=== PATIENT | male | born 1940 | race Caucasian/White ===

== ENCOUNTER 2018-12-01 13:04 | Emergency (ER) | payer MEDICARE, BC ==
[2018-12-01] MEDS ORDERED: Sodium Chloride 0.9% 1000 ML 1,000 ML IV STA ×2 (13:15→13:33)
--- NOTE | 2018-12-01 13:24 | ERPHSYRPT ---
- History of Present Illness Time Seen by Provider: 12/01/18 13:45 Source: patient, EMS Exam Limitations: no limitations Physician History: 78-year-old white male brought by medics with complaint of near syncopal episode at [facility] just prior to arrival. Patient states that he was walking at [facility] he suddenly began to feel weak dizzy diaphoretic felt like he had to use the bathroom , unfortunately some was in the stall he then,apparently , slid down the wall patient apparently had y diarrhea medics arrived. the patient appeared to have the same type of symptoms he never really didn't pass out he did not fall and hit his head he arrives talking and joking with staff. Past medical history includes cataracts, high blood pressure, arthritis, prostate problems, hernia.depression, hypotension. Past surgical history includes hernia repair, tonsillectomy, cataracts. . social history: Positive tobacco use, +6 beers a day, negative illicit drug use. Timing/Duration: today Severity: moderate Associated Symptoms: other (near syncopal episode, diarrhea) Allergies/Adverse Reactions: Penicillins Allergy (Intermediate, Verified 11/05/18 13:23) Itching swelling and itching Home Medications: Aspirin 81 mg PO DAILY 11/05/18 [History] Glucosamine/D3/Boswellia Nahed [Osteo Bi-Flex Tablet] 2 each PO DAILY 11/05/18 [ History] Losartan/Hydrochlorothiazide [Losartan-Hctz 50-12.5 mg Tab] 20 mg PO DAILY 11/05 [History] Naproxen Sodium [Aleve] 220 mg PO DAILY 11/05/18 [History] Hx Tetanus, Diphtheria Vaccination/Date Given: Yes Hx Influenza Vaccination/Date Given: No Hx Pneumococcal Vaccination/Date Given: No - Review of Systems Constitutional: Malaise, Weakness, Other (diaphoresis prior to nearsyncopal episode), No Fever, No Chills, No Fatigue, No Lethargy, No Night Sweats, No Weight Loss Eyes: No Symptoms Ears, Nose, & Throat: No Symptoms Respiratory: No Cough, No Dyspnea Cardiac: Other (near syncopal episode), No Chest Pain, No Edema, No Syncope Abdominal/Gastrointestinal: Nausea, Diarrhea, No Abdominal Pain, No Vomiting, No Constipation, No Hematemesis, No Hematochezia, No Melena, No Dysphagia, No Appetite Changes Genitourinary Symptoms: No Dysuria Musculoskeletal: No Back Pain, No Neck Pain Skin: No Rash Neurological: Other (near syncopal episode), No Dizziness, No Focal Weakness, No Sensory Changes Psychological: Other (drinks 6 beers a day), No Drug Abuse, No Anxiety, No Depression, No Suicidal Ideations, No Homicidal Ideations, No Emotional Lability , No Hallucinations, No Memory Loss Endocrine: No Symptoms - Past Medical History Pertinent Past Medical History: Yes Neurological History: No Pertinent History ENT History: Cataracts Cardiac History: Hypertension Respiratory History: No Pertinent History Endocrine Medical History: No Pertinent History Musculoskeletal History: Arthritis GI Medical History: Hernia History: No Pertinent History Psycho-Social History: No Pertinent History Male Reproductive Disorders: Prostate Problems - Past Surgical History Past Surgical History: Yes Neuro Surgical History: No Pertinent History Cardiac: No Pertinent History Respiratory: No Pertinent History Gastrointestinal: Hernia Repair Genitourinary: No Pertinent History Musculoskeletal: No Pertinent History Male Surgical History: No Pertinent History Other Surgical History: tonsillectomy,CATARACTS - Social History Smoking Status: Current every day smoker How long have you smoked: 60yrs Exposure to second hand smoke: Yes Drug Use: none Patient Lives Alone: Yes - Nursing Vital Signs Nursing Vital Signs: Initial Vital Signs Temperature 98.1 F 12/01/18 13:24 Pulse Rate 88 12/01/18 13:24 Respiratory Rate 16 12/01/18 13:24 Blood Pressure 90/62 12/01/18 13:24 O2 Sat by Pulse Oximetry 92 L 12/01/18 13:24 Pain Scale Pain Intensity 0 - Physical Exam General Appearance: no apparent distress, alert Eye Exam: PERRL/EOMI, eyes nml inspection Ears, Nose, Throat Exam: normal ENT inspection, TMs normal, pharynx normal, moist mucous membranes Neck Exam: normal inspection, non-tender, supple, full range of motion Respiratory Exam: normal breath sounds, lungs clear, No respiratory distress Cardiovascular Exam: regular rate/rhythm, normal heart sounds, normal peripheral pulses, capillary refill <2 sec Gastrointestinal/Abdomen Exam: soft, normal bowel sounds, No tenderness, No mass Back Exam: normal inspection, normal range of motion, No CVA tenderness, No vertebral tenderness Extremity Exam: normal inspection, normal range of motion, pelvis stable Neurologic Exam: alert, oriented x 3, cooperative, border guard II-XII nml as tested, normal mood/affect, nml cerebellar function, nml station & gait, sensation nml, No motor deficits, No sensory deficit, No disoriented, No confusion, No agitation, No uncooperative, No intoxicated appearance, No depressed mood/affect , No motor weakness, No facial droop, No slurred speech, No aphasia, No dysarthria, No abnormal gait, No abnormal cerebellar tests, No abnormal border guard II- XII (92%) Skin Exam: normal color (with the [place] for), warm, dry, No rash SpO2 Interpretation: normal - Course Nursing assessment & vital signs reviewed: Yes EKG Interpreted by Me: RATE (80 bpm), Left [place] Deviation, Other (EKG: Sinus rhythm, 80 bpm, left axis deviation, incomplete right bundle, left anterior fascicul, T-wave inversion in a AND LEADS V2 as compared to January 30, 2015) - Radiology Exams Chest X-ray Interpretation: Interpreted by me (chest x-ray no definite infiltrates somewhat hazy interstitial pattern bilateral lungs no definite CHF) Ordered Tests: Active Orders 24 hr Category Date Time Status Embossing Toolsetter STAT Care 12/01/18 14:12 Active EKG-ER Only STAT Care 12/01/18 13:15 Active IV Insertion STAT Care 12/01/18 13:15 Active Orthostatic Vital Signs STAT Care 12/01/18 13:16 Active Pulse Oximetry (ED) STAT Care 12/01/18 14:12 Active CHEST 1 VIEW (PORTABLE) Stat Exams 12/01/18 14:08 Taken AMYLASE Stat Lab 12/01/18 13:32 Completed CBC W DIFF Stat Lab 12/01/18 13:32 Completed CMP Stat Lab 12/01/18 13:32 Completed LIPASE Stat Lab 12/01/18 13:32 Completed PROTIME WITH INR Stat Lab 12/01/18 12:50 Completed PTT Stat Lab 12/01/18 12:50 Completed TROPONIN Q3H Lab 12/01/18 13:32 Completed TROPONIN Q3H Lab 12/01/18 16:15 Ordered TROPONIN Q3H Lab 12/01/18 19:15 Ordered TROPONIN Q3H Lab 12/01/18 22:15 Ordered TROPONIN Q3H Lab 12/02/18 01:15 Ordered UA W/RFX UR CULTURE Stat Lab 12/01/18 13:15 Uncollected Medication Summary Discontinued Medications Generic Name Dose Route Start Last Admin Trade Name Dani PRN Reason Stop Dose Admin Aspirin 324 mg 12/01/18 14:12 12/01/18 14:14 Baby Aspirin 81 Mg Chew PO 12/01/18 14:13 324 mg STAT ONE Administration Aspirin Confirm 12/01/18 14:13 Baby Aspirin 81 Mg Chew Administered 12/01/18 14:14 Dose 324 mg .ROUTE .STK-MED ONE Sodium Chloride 1,000 mls @ 999 mls/hr 12/01/18 13:15 12/01/18 14:16 Sodium Chloride 0.9% 1000 Ml IV 12/01/18 14:15 Infused .Q1H1M STA Infusion Sodium Chloride 1,000 mls @ 999 mls/hr 12/01/18 13:33 12/01/18 14:15 Sodium Chloride 0.9% 1000 Ml IV 12/01/18 14:33 Infused .Q1H1M STA Infusion Sodium Chloride Confirm 12/01/18 13:34 Sodium Chloride 0.9% 1000 Ml Administered 12/01/18 13:35 Dose 1,000 mls @ ud .ROUTE .STK-MED ONE Sodium Chloride Confirm 12/01/18 13:47 Sodium Chloride 0.9% 1000 Ml Administered 12/01/18 13:48 Dose 1,000 mls @ ud .ROUTE .STK-MED ONE Thiamine HCl 100 mg 12/01/18 13:44 12/01/18 13:48 Thiamine 200 Mg/2 Ml IV 12/01/18 13:45 100 mg STAT ONE Administration Thiamine HCl Confirm 12/01/18 13:47 Thiamine 200 Mg/2 Ml Administered 12/01/18 13:48 Dose 200 mg .ROUTE .STK-MED ONE Lab/Rad Data: Laboratory Result Diagrams 12/01/18 13:32 12/01/18 13:32 Laboratory Results 12/01/18 12/01/18 12/01/18 Range/Units 13:32 13:32 13:32 WBC 8.3 (4.0-10.5) K/mm3 RBC 5.44 (4.1-5.6) M/mm3 Hgb 17.3 (12.5-18.0) gm/dl Hct 49.4 (42-50) % MCV 90.8 (78-100) fl MCH 31.8 (26-32) pg MCHC 35.0 (32-36) g/dl RDW 13.2 (11.5-14.0) % Plt Count 254 (150-450) K/mm3 MPV 9.5 (6-9.5) fl Gran % 66.3 H (36.0-66.0) % Eos # (Auto) 0.18 (0-0.5) Absolute Lymphs (auto) 1.34 (1.0-4.6) Absolute Monos (auto) 1.21 (0.0-1.3) Lymphocytes % 16.2 L (24.0-44.0) % Monocytes % 14.6 H (0.0-12.0) % Eosinophils % 2.2 (0.00-5.0) % Basophils % 0.7 (0.0-0.4) % Absolute Granulocytes 5.50 (1.4-6.9) Basophils # 0.06 (0-0.4) PT (8.83-12.87) SECONDS INR (0.8-3.0) APTT (24.1-36.1) SECONDS Sodium 133 L (137-145) mmol/L Potassium 3.2 L (3.5-5.1) mmol/L Chloride 92 L (98-107) mmol/L Carbon Dioxide 24 (22-30) mmol/L Anion Gap 19.6 H (5-15) MEQ/L BUN 20 (9-20) mg/dL Creatinine 2.50 H (0.66-1.25) mg/dL Estimated GFR 26.8 ML/MIN Glucose 132 H (74-106) mg/dL Calcium 11.7 H (8.4-10.2) mg/dL Total Bilirubin 0.70 (0.2-1.3) mg/dL AST 49 (17-59) U/L ALT 31 (0-50) U/L Alkaline Phosphatase 105 (38-126) U/L Troponin I 0.074 H* (0.000-0.034) ng/mL Serum Total Protein 7.5 (6.3-8.2) g/dL Albumin 4.1 (3.5-5.0) g/dL Amylase 88 (30-110) U/L Lipase 40 (23-300) U/L 12/01/18 Range/Units 12:50 WBC (4.0-10.5) K/mm3 RBC (4.1-5.6) M/mm3 Hgb (12.5-18.0) gm/dl Hct (42-50) % MCV (78-100) fl MCH (26-32) pg MCHC (32-36) g/dl RDW (11.5-14.0) % Plt Count (150-450) K/mm3 MPV (6-9.5) fl Gran % (36.0-66.0) % Eos # (Auto) (0-0.5) Absolute Lymphs (auto) (1.0-4.6) Absolute Monos (auto) (0.0-1.3) Lymphocytes % (24.0-44.0) % Monocytes % (0.0-12.0) % Eosinophils % (0.00-5.0) % Basophils % (0.0-0.4) % Absolute Granulocytes (1.4-6.9) Basophils # (0-0.4) PT 11.9 (8.83-12.87) SECONDS INR 1.02 (0.8-3.0) APTT 26.7 (24.1-36.1) SECONDS Sodium (137-145) mmol/L Potassium (3.5-5.1) mmol/L Chloride (98-107) mmol/L Carbon Dioxide (22-30) mmol/L Anion Gap (5-15) MEQ/L BUN (9-20) mg/dL Creatinine (0.66-1.25) mg/dL Estimated GFR ML/MIN Glucose (74-106) mg/dL Calcium (8.4-10.2) mg/dL Total Bilirubin (0.2-1.3) mg/dL AST (17-59) U/L ALT (0-50) U/L Alkaline Phosphatase (38-126) U/L Troponin I (0.000-0.034) ng/mL Serum Total Protein (6.3-8.2) g/dL Albumin (3.5-5.0) g/dL Amylase (30-110) U/L Lipase (23-300) U/L - Progress Progress: improved Progress Note: 12/01/18 14:20 This is a 78-year-old white male with history of cataracts, high blood pressure , arthritis, depression, hypotension who drinks 6 beers a day. He apparently was at the local [facility] when he suddenly began to feel diaphoretic sweaty he went to the bathroom he felt like he needed use of restroom however the stall was full he apparently slid down the side of the wall and the had a near syncopal episode patient had diarrhea there. Medics state that when they showed up the patient appeared to have a second near syncopal episode he never really did pass out. On arrival patient was alert and oriented 3 he was talkative he was somewhat hypotensive. Patient was given IV fluids he is feeling better at this time. Patient with an EKG which shows sinus rhythm 80 bpm left axis deviation there are T wave inversions in leads aVL and V2 as compared to January 30, 2015 Patient's labs CBC white blood cell 8.3 hemoglobin 17.3 hematocrit 49.4 platelets 257 patient's chemistry sodium 133 potassium 3.2 chloride 92 bicarbonate 24 BUN 20 creatinine 2.5 glucose 132 Patient's troponin is elevated at 0.079 Patient is feeling better at 2 L of normal saline have been ordered for the patient as well as thiamine 100 mg IV. I've talked with the patient I recommended that the patient consider transfer to a facility that has a in-house cardiology available. He is reluctant to do so at this time. 12/01/18 14:48 Patient refuses transfer to any of the local hospitals which have available senior functional analyst. I've discussed the case with Dr. Campos he feels that the patient needs to be transferred to a facility which has senior functional analyst available and that if the patient will not do so he will need to sign out AGAINST MEDICAL ADVICE. Patient does appear to be markedly improved he is in no distress his blood pressure is improved. I've told the patient that he needs to go to a facility where her senior functional analyst is available he refuses and he states he will sign out AGAINST MEDICAL ADVICE. I have told the patient that should he have a cardiac event that he could . He is already had several episodes where he was feeling weak he has had a near syncopal episode including fecal incontinence. He still refuses transfer. Will have patient sign out AGAINST MEDICAL ADVICE. - Departure Time of Disposition: 14:50 Departure Disposition: AMA Clinical Impression: near syncopal episode, Elevated troponin Hypotension Qualifiers: Hypotension type: unspecified hypotension type Qualified Code(s): I95.9 - Hypotension, unspecified Condition: Fair Critical Care Time: No Referrals: JAMEE MERRILL [COURTESY STAFF] - Additional Instructions: Your signing out AGAINST MEDICAL ADVICE. There has been a recommended that he be transferred to a facility that has a senior functional analyst available in house you have refused. Should you have a cardiac event at home but it's possible that this could be lethal. You should follow-up with a senior functional analyst or your local physician. You may return at any time for evaluation.
[2018-12-01] MEDS ORDERED: Sodium Chloride 0.9% 1000 ML 1,000 ML ONE ×2 (13:34→13:47)
[2018-12-01] MEDS ORDERED: THIAMINE 200 MG/2 ML IV ONE (13:44)
[2018-12-01 13:45] LABS: ALBUMIN 4.1 g/dL (3.5-5.0); ANION GAP 19.6 MEQ/L (5-15); BILIRUBIN,TOTAL 0.7 mg/dL (0.2-1.3); Calcium 11.7 mg/dL (8.4-10.2); Creatinine 1 2.5 mg/dL (0.66-1.25); Potassium 3.2 mmol/L (3.5-5.1); Total Protein 7.5 g/dL (6.3-8.2)
[2018-12-01] MEDS ORDERED: THIAMINE 200 MG/2 ML ONE (13:47)
[2018-12-01 13:49] LABS: BASOPHIL % 0.7 % (0.0-0.4); Basophil (Absolute #) 0.06 (0-0.4); Eosinophil % 2.2 % (0.00-5.0); Eosinophil (Absolute #) 0.18 (0-0.5); Granulocytes % 66.3 % (36.0-66.0); Hematocrit 49.4 % (42-50); Hemoglobin 17.3 gm/dl (12.5-18.0); Lymphocyte (Absolute #) 1.34 (1.0-4.6); Lymphocytes % 16.2 % (24.0-44.0); Mean Cell Volume 90.8 fl (78-100); Mean Corpuscular Hemoglobin 31.8 pg (26-32); Mean Platelet Volume 9.5 fl (6-9.5); Monocyte (Absolute #) 1.21 (0.0-1.3); Monocytes % 14.6 % (0.0-12.0); Platelet Count 254 K/mm3 (150-450); Red Blood Count 5.44 M/mm3 (4.1-5.6); Red Cell Distribution Width 13.2 % (11.5-14.0); White Blood Count 8.3 K/mm3 (4.0-10.5)
[2018-12-01] MEDS ORDERED: BABY ASPIRIN 81 MG CHEW PO ONE (14:12)
[2018-12-01] MEDS ORDERED: BABY ASPIRIN 81 MG CHEW ONE (14:13)
[2018-12-01 14:44] LABS: INR 1.02 (0.8-3.0); PROTIME 11.9 SECONDS (8.83-12.87)
[2018-12-01 14:46] LABS: PTT 26.7 SECONDS (24.1-36.1)
[2018-12-01 14:53] VITALS: BP 125/88; PULSE 78; O2SAT 90
--- NOTE | 2018-12-01 21:56 | XRAY ---
Indication: Diaphoresis. Near syncope. Comparison: January 30, 2015. Portable apical lordotic chest slightly rotated with chronic interstitial lung markings. No focal infiltrate, consolidation, or large effusion. Heart is not enlarged for AP portable technique. Bony thorax intact again with mild osteopenia and degenerative changes. Impression: Nonacute chest with chronic features.
== END 2018-12-01 16:02 | disposition home or self-care (01) ==
LOC: ED 13:04
DX: R55 Syncope and collapse (principal); R74.8 Abnormal levels of other serum enzymes; I95.9 Hypotension, unspecified; Z79.899 Other long term (current) drug therapy
CPT/HCPCS: 36000; 36415; 71045; 80053; 82150; 83690; 84484; 85025; 85610; 85730; 93005; 93041; 96360; 96361; 96374; 96375; 99285; A9270-GY

== ENCOUNTER 2019-06-14 02:47 | Inpatient (IN) | payer MEDICARE, BC ==
[2019-06-14] MEDS ORDERED: MORPHINE SULFATE 2 MG INJ IV ONE (03:20)
--- NOTE | 2019-06-14 03:20 | ERPHSYRPT ---
- History of Present Illness Time Seen by Provider: 06/14/19 03:15 Source: patient, family Exam Limitations: no limitations Patient Subjective Stated Complaint: pt states he has a hernia on rt side and has been unable to redufe it at home. has had increased swelling and pain since 2199 Triage Nursing Assessment: pt alert and oriented, answers questions approp. pt ambulates in back door with steady gait noted. respirations nonlabored. skin pink warm and dry. abd soft with bowel sounds hypo x4. swelling noted to rt groin with tenderness . Physician History: 79 y/o white male presents with a recurrent right inguinal hernia. has occurred often in the last several months. when it comes out, usually golf ball size and able to ly down and reduce. at 2229, came out differently. he attempted to reduce but could not. enlarged and tender. active but does not do excessive lifting. Timing/Duration: today Activites at Onset: none Quality: cramping Onset Location: groin ( right inguinal hernia) Severity of Pain-Max: moderate (when attempting to reduce) Severity of Pain-Current: moderate Modifying Factors: Improves With: nothing, other (nauseated) Associated Symptoms: nausea (right ing hernia open without mesh 2001) Allergies/Adverse Reactions: Penicillins Allergy (Intermediate, Verified 06/14/19 03:18) Itching swelling and itching Home Medications: Aspirin 81 mg PO DAILY 11/05/18 [History] Glucosamine/D3/Boswellia Nahed [Osteo Bi-Flex Tablet] 2 each PO DAILY 11/05/18 [ History] Losartan/Hydrochlorothiazide [Losartan-Hctz 50-12.5 mg Tab] 1 tab PO DAILY 11/05 [History] Naproxen Sodium [Aleve] 220 mg PO DAILY 11/05/18 [History] Hx Tetanus, Diphtheria Vaccination/Date Given: Yes Hx Influenza Vaccination/Date Given: No Hx Pneumococcal Vaccination/Date Given: No Immunizations Up to Date: Yes - Past Medical History Pertinent Past Medical History: Yes Neurological History: No Pertinent History ENT History: Cataracts Cardiac History: Hypertension Respiratory History: No Pertinent History Endocrine Medical History: No Pertinent History Musculoskeletal History: Arthritis GI Medical History: Hernia History: No Pertinent History Psycho-Social History: No Pertinent History Male Reproductive Disorders: Prostate Problems Other Medical History: hypotension - Past Surgical History Past Surgical History: Yes Neuro Surgical History: No Pertinent History Cardiac: No Pertinent History Respiratory: No Pertinent History Gastrointestinal: Hernia Repair Genitourinary: No Pertinent History Musculoskeletal: No Pertinent History Male Surgical History: No Pertinent History Other Surgical History: tonsillectomy,CATARACTS - Social History Smoking Status: Current every day smoker How long have you smoked: 60yrs Exposure to second hand smoke: Yes Drug Use: none Patient Lives Alone: Yes - Review of Systems Constitutional: No Symptoms Eyes: No Symptoms Ears, Nose, & Throat: No Symptoms Respiratory: No Symptoms Cardiac: No Symptoms Genitourinary Symptoms: Other (right ing hernia-recurrent) Skin: No Symptoms Neurological: No Symptoms Psychological: No Symptoms Endocrine: No Symptoms Hematologic/Lymphatic: No Symptoms Immunological/Allergic: No Symptoms All Other Systems: Reviewed and Negative - Nursing Vital Signs Nursing Vital Signs: Initial Vital Signs Temperature 97.8 F 06/14/19 02:51 Pulse Rate 88 06/14/19 02:51 Respiratory Rate 18 06/14/19 02:51 Blood Pressure 164/97 06/14/19 02:51 O2 Sat by Pulse Oximetry 96 06/14/19 02:51 Pain Scale Pain Intensity 7 - Physical Exam General Appearance: no apparent distress, alert, anxiety Eye Exam: PERRL/EOMI, eyes nml inspection Ears, Nose, Throat Exam: normal ENT inspection, moist mucous membranes Neck Exam: normal inspection Respiratory Exam: normal breath sounds Cardiovascular Exam: regular rate/rhythm, normal heart sounds, normal peripheral pulses Gastrointestinal/Abdomen Exam: soft, normal bowel sounds, No tenderness Rectal Exam: not done Male Genital Exam: hernia mass (right inguinal incarcerated hernia. ) Back Exam: normal inspection, normal range of motion, No CVA tenderness, No vertebral tenderness Extremity Exam: normal inspection, normal range of motion, pelvis stable Neurologic Exam: alert, oriented x 3, cooperative, development professional II-XII nml as tested Skin Exam: normal color, warm, dry Lymphatic Exam: No adenopathy SpO2 Interpretation: normal SpO2: 96 Procedures - Additional Procedures Progress: after 0.5mg iv ativan and 2mg iv morphine, i attempted unsuccessfully to reduce pts incarcerated right inguinal hernia. - Course Nursing assessment & vital signs reviewed: Yes EKG Interpreted by Me: RATE (80), Sinus Rhythm, Left [place] Deviation, 1st degree AV Block, Non-specific ST Changes, Other (no comparison ekg) Ordered Tests: Active Orders 24 hr Category Date Time Status EKG-ER Only STAT Care 06/14/19 05:33 Active IV Insertion STAT Care 06/14/19 03:20 Active CBC W DIFF Stat Lab 06/14/19 05:41 Completed CMP Stat Lab 06/14/19 05:41 Completed Manual Differential NC Stat Lab 06/14/19 05:41 Completed PROTIME WITH INR Stat Lab 06/14/19 05:41 Completed Transfer Order Routine Transfer 06/14/19 Ordered Medication Summary Discontinued Medications Generic Name Dose Route Start Last Admin Trade Name Freq PRN Reason Stop Dose Admin Lorazepam 0.5 mg 06/14/19 03:21 06/14/19 03:31 Ativan 2 Mg/1 Ml Vial IV 06/14/19 03:22 0.5 mg STAT ONE Administration Lorazepam Confirm 06/14/19 03:22 Ativan 2 Mg/1 Ml Vial Administered 06/14/19 03:23 Dose 2 mg .ROUTE .STK-MED ONE Morphine Sulfate 2 mg 06/14/19 03:20 06/14/19 03:32 Morphine Sulfate 2 Mg Inj IV 06/14/19 03:21 2 mg STAT ONE Administration Morphine Sulfate Confirm 06/14/19 03:24 Morphine Sulfate 2 Mg Inj Administered 06/14/19 03:25 Dose 2 mg .ROUTE .STK-MED ONE Ondansetron HCl Confirm 06/14/19 03:42 Zofran 4 Mg/2 Ml Vial Administered 06/14/19 03:43 Dose 4 mg .ROUTE .STK-MED ONE Ondansetron HCl 4 mg 06/14/19 04:15 06/14/19 04:05 Zofran 4 Mg/2 Ml Vial IV 06/14/19 04:16 4 mg STAT ONE Administration Lab/Rad Data: Laboratory Result Diagrams 06/14/19 05:41 06/14/19 05:41 Laboratory Results 06/14/19 06/14/19 06/14/19 Range/Units 05:41 05:41 05:41 WBC 9.0 (4.0-10.5) K/mm3 RBC 5.19 (4.1-5.6) M/mm3 Hgb 16.9 (12.5-18.0) gm/dl Hct 47.7 (42-50) % MCV 91.9 (78-100) fl MCH 32.6 H (26-32) pg MCHC 35.4 (32-36) g/dl RDW 13.6 (11.5-14.0) % Plt Count 243 (150-450) K/mm3 MPV 9.6 H (6-9.5) fl PT 11.0 (8.83-12.87) SECONDS INR 0.97 (0.8-3.0) Sodium 131 L (137-145) mmol/L Potassium 3.3 L (3.5-5.1) mmol/L Chloride 92 L (98-107) mmol/L Carbon Dioxide 25 (22-30) mmol/L Anion Gap 16.7 H (5-15) MEQ/L BUN 7 L (9-20) mg/dL Creatinine 1.12 (0.66-1.25) mg/dL Estimated GFR > 60.0 ML/MIN Glucose 108 H (74-106) mg/dL Calcium 9.7 (8.4-10.2) mg/dL Total Bilirubin 0.40 (0.2-1.3) mg/dL AST 59 (17-59) U/L ALT 23 (0-50) U/L Alkaline Phosphatase 102 (38-126) U/L Serum Total Protein 7.5 (6.3-8.2) g/dL Albumin 4.1 (3.5-5.0) g/dL - Progress Progress Note: 06/14/19 05:[address] franko bell, surgeon. i reviewed pt hx, condition and physical findings. dr. franko bell would like admission to pcp, keep pt npo, ivf. he will be consulted and see pt this am. 06/14/19 06:[address] hare, admitting physician. i reviewed pt hx, condition, lab, ekg findings. he accepts pt to be placed in observation Discussed with .: Yvonne Horvath Counseled pt/family regarding: lab results, diagnosis, need for follow-up - Departure Departure Disposition: Observation Clinical Impression: Incarcerated right inguinal hernia Condition: Stable Critical Care Time: No Referrals: DOCTOR,NO FAMILY [Primary Care Provider] -
[2019-06-14] MEDS ORDERED: Ativan 2 MG/1 ML VIAL IV ONE (03:21)
[2019-06-14] MEDS ORDERED: Ativan 2 MG/1 ML VIAL ONE (03:22)
[2019-06-14] MEDS ORDERED: MORPHINE SULFATE 2 MG INJ ONE (03:24)
[2019-06-14] MEDS ORDERED: Zofran 4 MG/2 ML VIAL ONE ×2 (03:42→13:09)
[2019-06-14] MEDS ORDERED: Zofran 4 MG/2 ML VIAL IV ONE (04:15)
[2019-06-14 05:38] LABS: Hematocrit 47.7 % (42-50); Hemoglobin 16.9 gm/dl (12.5-18.0); Mean Cell Volume 91.9 fl (78-100); Mean Corpuscular Hemoglobin 32.6 pg (26-32); Mean Corpuscular Hgb Concent. 35.4 g/dl (32-36); Mean Platelet Volume 9.6 fl (6-9.5); Platelet Count 243 K/mm3 (150-450); Red Blood Count 5.19 M/mm3 (4.1-5.6); Red Cell Distribution Width 13.6 % (11.5-14.0)
[2019-06-14 05:39] LABS: INR 0.97 (0.8-3.0)
[2019-06-14 05:48] LABS: ALBUMIN 4.1 g/dL (3.5-5.0); ALKALINE PHOSPHATASE 102 U/L (38-126); ANION GAP 16.7 MEQ/L (5-15); BLOOD UREA NITROGEN 7 mg/dL (9-20); CHLORIDE 92 mmol/L (98-107); Calcium 9.7 mg/dL (8.4-10.2); Carbon Dioxide 25 mmol/L (22-30); Creatinine 1 1.12 mg/dL (0.66-1.25); Glucose 108 mg/dL (74-106); Potassium 3.3 mmol/L (3.5-5.1); SGOT/AST 59 U/L (17-59); SGPT/ALT 23 U/L (0-50); SODIUM 131 mmol/L (137-145); Total Protein 7.5 g/dL (6.3-8.2)
[2019-06-14] MEDS ORDERED: POTASSIUM CHLORIDE 20 mEq IN WATER 100ML 20 MEQ/100 ML BAG IV ONE (06:06)
[2019-06-14 06:09] LABS: ATYPICAL LYMPHS 3 %; Eosinophil 1 % (0.00-3.0); Lymphocytes 23 % (24-44); Monocyte 5 % (0.0-12.0); Neutrophils 68 % (36.-66.); Total Cells Counted 100
[2019-06-14] MEDS ORDERED: Sodium Chloride 0.9% 1000 ML 1,000 ML ONE (06:09)
[2019-06-14] MEDS ORDERED: POTASSIUM CHLORIDE 20 mEq IN WATER 100ML 100 ML IV ONE (06:09)
[2019-06-14] MEDS ORDERED: Sodium Chloride 0.9% 1000 ML 1,000 ML IV SCH ×3 (06:15→07:01)
[2019-06-14] MEDS ORDERED: Zofran 4 MG/2 ML VIAL IV PRN (07:01)
[2019-06-14] MEDS ORDERED: DILAUDID 2 MG INJECTION IV PRN (07:01)
[2019-06-14] MEDS ORDERED: Lactated Ringers 1,000 ML IV ONE ×2 (08:40→11:20)
[2019-06-14] MEDS ORDERED: Sensorcaine 0.25% 10 ML ONE (08:40)
--- NOTE | 2019-06-14 08:46 | XRAY ---
Indication: Right abdomen/pelvic pain. Multiple contiguous axial images obtained through the abdomen and pelvis using 80 cc Isovue 370 contrast only. Comparison: None Lung bases demonstrates scattered fibrosis/scarring and mild bibasilar dependent atelectasis. Heart is not enlarged. Distal esophagus demonstrates circumferential wall thickening, possible esophagitis. Also small hiatal hernia. Stomach is distended with fluid. Noncontrasted stomach and bowel loops appear nonobstructed. Large right inguinal hernia with loop of small bowel herniating. Herniated small bowel loop is mildly fluid distended and there is small free fluid concerning for possible incarceration. Scattered colonic diverticulosis throughout, greatest sigmoid. No free fluid/air. Both kidneys enhance and excrete. A few bilateral renal cysts, largest left upper pole measuring 3.7 cm. No hydronephrosis or hydroureter. Enlarged prostate gland impresses on the base of the bladder. A few hepatic cysts, largest left lobe measuring 1.2 cm. Remaining liver, gallbladder, pancreas, spleen, adrenal glands, kidneys, ureters, and bladder appear unremarkable. Heavy scattered vascular calcifications with distal aortic and left common iliac ectasia. No pathologic retroperitoneal lymphadenopathy. Osseous structures demonstrates mild/moderate degenerative changes throughout the thoracolumbar spine. Impression: 1. Large right inguinal hernia with herniated small bowel loop and fluid concerning for incarceration. 2. Colonic diverticulosis, hepatic cysts, bilateral renal cysts, and enlarged prostate gland. 3. Small hiatal hernia. Distal esophageal circumferential wall thickening, possible reflux esophagitis. CT DI 22.61
--- NOTE | 2019-06-14 08:50 | HP ---
CHIEF COMPLAINT: Swelling in the right inguinal area. HISTORY OF PRESENT ILLNESS: The patient is a 79 year-old white male patient who reports he had hernia repair done in 2010. He reports he had within a year and a half began having problems with the hernia enlarging again but he was always able to reduce it and it was no larger than roughly a golf ball in size. However the patient yesterday noted that he could no longer reduce the inguinal hernia as it became more of a baseball in size. The patient presented to the emergency room and was found to have an incarcerated inguinal hernia and admitted to the hospital for surgical consultation and definitive treatment. PAST MEDICAL/SURGICAL HISTORY: Significant for having had the hernia repair, tonsillectomy, cataracts. He has hypertension. HOME MEDICATIONS: Aspirin, glucosamine chondroitin, losartan-hydrochlorothiazide 50/12.5 mg daily, Naproxen 220 mg. ALLERGIES: PENICILLINS. PHYSICAL EXAMINATION: His vital signs on admission showed his temperature to be 97.8F, pulse 88, respiratory rate 18 and blood pressure 164/97. O2 saturation 96%. HEENT: Normocephalic, atraumatic. Pupils equal round reactive to light. Extraocular movements intact. Oropharynx is pink and moist. NECK: Supple without lymphadenopathy, thyromegaly or JVD. CHEST: Clear to auscultation. HEART: Regular rate and rhythm. No murmurs, rubs or gallops are heard. ABDOMEN: Soft. There is swelling in the right inguinal area. EXTREMITIES: Without cyanosis, clubbing or edema. NEUROLOGIC: The patient is alert and oriented x3. No focal deficits were noted. LAB DATA AND TESTS: Revealed a white count of 9,000, hemoglobin 16.9, PLT count 243,000. His sugar was 108 nonfasting and BUN 7, creatinine 1.12, potassium slightly low at 3.3. Liver enzymes were normal. He had international normalized ratio of 0.97. 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 There are no acute changes noted. ASSESSMENT: A patient with right inguinal hernia and now incarcerated. He has been placed NPO pending surgical consultation and definitive treatment of the hernia.
[2019-06-14] MEDS ORDERED: MEDICATION INTERVENTION MC SCH (09:30)
[2019-06-14] MEDS ORDERED: MULTIVIT MINERALS PO SCH (10:00)
[2019-06-14] MEDS ORDERED: BOSWELLIA SERRA PO SCH (10:00)
[2019-06-14] MEDS ORDERED: D3 PO SCH (10:00)
[2019-06-14] MEDS ORDERED: NON-FORMULARY ITEM (Aspirin [Aspirin] 81 MG) PO SCH (10:00)
[2019-06-14] MEDS ORDERED: [UNRECOGNIZED DRUG - OTHER] PO SCH (10:00)
[2019-06-14] MEDS ORDERED: Lactated Ringers 1,000 ML IV SCH (10:00)
[2019-06-14] MEDS ORDERED: LYCOPENE PO SCH (10:00)
[2019-06-14] MEDS ORDERED: ECOTRIN 81 MG PO SCH (10:00)
[2019-06-14] MEDS ORDERED: GLUCOSAMINE PO SCH (10:00)
[2019-06-14] MEDS ORDERED: CLINDAMYCIN-D5W 900 MG/50 ML*** 900 MG/50 ML BAG IV SCH (10:00)
[2019-06-14] MEDS ORDERED: NON-FORMULARY ITEM (Losartan/Hydrochlorothiazide [Losartan-Hctz 50-12.5 Mg Tab] 1 TAB) PO SCH (10:00)
[2019-06-14] MEDS ORDERED: Versed 2 MG/2 ML Injection ONE (10:14)
[2019-06-14] MEDS ORDERED: Quelicin Fliptop 200 MG/10 ML ONE (10:14)
[2019-06-14] MEDS ORDERED: Zemuron 100 MG/10 ML ONE ×2 (10:14→12:45)
[2019-06-14] MEDS ORDERED: SUBLIMAZE 250 MCG/5 ML ONE (10:14)
[2019-06-14] MEDS ORDERED: DIPRIVAN 200 MG/20 ML IV ONE (10:14)
[2019-06-14] MEDS ORDERED: BREVIBLOC 100 MG/10 ML IV ONE (11:03)
[2019-06-14] MEDS ORDERED: PHENYLEPHRINE HCL ONE (11:26)
--- NOTE | 2019-06-14 11:38 | CONS ---
CONSULT DATE: 06/14/2019 REASON FOR CONSULT: Right groin pain. HISTORY: The patient presents with a recurrent right inguinal hernia that is incarcerated. He has noticed it for quite a while but it has always been reducible until last night. It got stuck out and he could not push it back in and it has become very painful, swollen and much larger than it usually is. He went to the emergency department this morning and again it was not reducible in the emergency department. He had a prior hernia repair in [address] Beni Lozada. He does not believe he had any mesh at that time. PAST MEDICAL HISTORY: Hypertension. PAST SURGICAL HISTORY: Right inguinal hernia repair in 2001. Tonsils and adenoids. MEDICATIONS: Losartan. ALLERGIES: PENICILLINS. SOCIAL HISTORY: Positive tobacco and about four beers a day. FAMILY HISTORY: Noncontributory. LAB DATA AND TESTS: CT scan shows right inguinal hernia with incarcerated bowel and fluid around the bowel concerning for possible strangulation. Laboratory studies are fairly unremarkable. PHYSICAL EXAMINATION: GENERAL: Mild distress. HEENT: Sclera nonicteric. Extraocular movements intact. NECK: Supple. No JVD. CHEST: Nonlabored breathing. ABDOMEN: Soft, nondistended, nontender. Groin exam right groin with large inguinal hernia that is not reducible and very tender. SKIN: There are no skin changes. NEURO: Awake, alert, oriented. PSYCH: Appropriate mood and affect. ASSESSMENT AND PLAN: Recurrent incarcerated right inguinal hernia with possible strangulation. Risks and benefits of surgery discussed in depth with the patient including plans for open right inguinal hernia repair and possible need for laparoscopy or laparotomy and potential need for bowel resection and possibility of using mesh or a suture repair depending on the findings. The patient is aware of potential mesh complications including infection as well as risk of hernia recurrence or other surgical or medical complications. He would like to proceed with surgery.
[2019-06-14] MEDS ORDERED: BRIDION 200MG/2ML IV ONE (13:09)
[2019-06-14] MEDS ORDERED: LOPRESSOR 5 MG/5 ML INJECTION IV ONE (13:26)
[2019-06-14] MEDS ORDERED: SUBLIMAZE 100 MCG/2 ML ONE (13:27)
[2019-06-14] MEDS ORDERED: APRESOLINE 20 MG/ML INJ ONE (14:14)
--- NOTE | 2019-06-14 14:21 | OP ---
SURGERY DATE/TIME: 06/14/2019 1047 PREOPERATIVE DIAGNOSIS: Strangulated recurrent right inguinal hernia. POSTOPERATIVE DIAGNOSIS: Recurrent right inguinal hernia with strangulated small bowel and bladder with reversible ischemia. PROCEDURES: 1) Open recurrent strangulated right inguinal hernia repair. 2) Repair of iatrogenic bladder injury. 3) Diagnostic laparoscopy. SURGEON: Kris Lozada M.D. ANESTHESIA: General. ESTIMATED BLOOD LOSS: 100 cc. COMPLICATIONS: Bladder injury. FINDINGS: Recurrent right inguinal hernia with small bowel and bladder in the hernia sac, small bowel with reversible ischemia. The small bowel was evaluated on diagnostic laparoscopy as they were reduced back in the abdomen during surgery. The small bowel was beefy red and had been ischemic but appeared viable on laparoscopy. Bladder mucosa appeared partially necrotic. PATIENT PRESENTATION: This patient presents with a symptomatic incarcerated right inguinal hernia. On CT scan it shows small bowel potentially strangulated in the hernia. After discussing risks, benefits of surgery the patient wished to proceed. DESCRIPTION OF PROCEDURE: The patient was brought to the OR and placed supine on the operating table, placed under general anesthesia. Left arm was tucked. Long catheter inserted. Abdomen and groin were prepped and draped in sterile fashion. A transverse incision made at his prior scar from his previous right inguinal hernia repair with scalpel. This was taken down to the hernia sac with electrocautery. The hernia sac was incised and lifted up into the wound. The hernia sac was sequentially opened and multiple layers of attenuated fascia and hernia sac. The defect was quite tight and the defect was opened superior-laterally to allow better access to the hernia contents. After this was opened, it appeared the small bowel dropped back into the abdomen. The hernia sac appeared dusky and it was opened and it was seen thicker than usual. After further inspection it became apparent that this was not the hernia sac as there was blood in the urine and on palpating a finger deep into what was thought to be the hernia sac the Long catheter balloon could be felt and it became apparent that the bladder had been opened up and explored. The mucosa on this edge corner of the bladder was ischemic and partially necrotic. After opening the defect it did appear that this became better vascularized and the muscle and serosa appeared viable and the mucosa seemed like it would probably recover. There was urine in the bladder that was suctioned out. The bladder was closed with a running 3-0 PDS suture full thickness and a second layer of interrupted Lembert's. The hernia sac proper was then opened up and inspected. There were no contents inside of this hernia sac. A diagnostic laparoscopy is then performed making incision above the umbilicus and dissecting down bluntly. The fascia was lifted up. Veress needle was inserted. Pneumoperitoneum obtained. A 5 mm optic trocar is inserted under direct visualization. The abdomen was entered and was inspected. There did not appear to be any inadvertent injury. Additional trocar was placed left laterally. The patient placed in Trendelenburg position and the bowel was inspected. There was about an 8 inch segment of bowel that was beefy red and it appeared that it had been strangulated in the hernia and was likely viable and appeared to be reversible ischemia. The bowel did seem to be peristalsing well and the abdomen was desufflated. Attention turned back to the hernia. The bladder was dissected down from the hernia defect and eventually was able to be reduced back into the abdomen. The hernia sac was transected and closed with running 3-0 Vicryl suture and handed off. The hernia defect was then closed. The spermatic cord and vas deferens were lifted up out of the way and the defect was closed with running 0 Prolene suture from the pubic tubercle and then running along Gumaro's and then shelving edge of Poupart's ligament to the conjoin tendon and this was ran all the way up to the spermatic cord which was snug up to it but not too tight and the internal ring recreated. An additional layer was ran with running 0 Prolene suture again. Closure seemed excellent. The tissue was actually fairly good quality. The wound was irrigated. The external oblique was completely destroyed. There did not seem to be any external oblique to close. The Henri fascia was closed with interrupted 3-0 vertical sutures. The incision was closed with mehdi. After further irrigation the abdomen was re-insufflated. The small bowel inspected again and did appear to be continuing to improve and was peristalsing. The abdomen was desufflated. The trocars removed. Additional wounds closed with mehdi. Dressings were applied. The patient was recovered and taken to PACU in stable condition with Long catheter in place and the plan is to continue Long and perform outpatient cystogram.
[2019-06-14 15:10] LABS: Appearance SLIGHTLY CLOUDY (CLEAR); Bilirubin NEGATIVE (NEGATIVE); Blood SMALL Ery/ul (0-5); Glucose NEGATIVE (NEGATIVE); Ketones NEGATIVE (NEGATIVE); Leukocyte Esterase NEGATIVE (NEGATIVE); Nitrite NEGATIVE (NEGATIVE); Protein,Urine Dip NEGATIVE (Negative); RBC 0-2 /HPF (0-2); Specific Gravity 1.017 (1.005-1.025); Urobilinogen NEGATIVE mg/dL (0-1); WBC 0-2 /HPF (0-5)
[2019-06-14 15:11] LABS: Bacteria NONE SEEN /HPF (NEGATIVE)
[2019-06-14] MEDS: Cozaar 50 MG PO SCH (15:20)
[2019-06-14] MEDS: hydroDIURIL 25 MG PO SCH (15:20)
[2019-06-14] MEDS: THERAGRAN MULTIVITAMIN PO SCH (15:26)
[2019-06-14] MEDS ORDERED: Sodium Chloride 0.9% 10 ML FLUSH Syringe IV PRN (16:00)
[2019-06-14] MEDS: Levofloxacin 500MG/100ML D5W 500 MG/100 ML BAG IV SCH (16:52)
[2019-06-14] MEDS ORDERED: APRESOLINE 20 MG/ML INJ IV PRN ×2 (17:07→20:59)
[2019-06-14] MEDS: Sodium Chloride 0.9% 10 ML FLUSH Syringe IV SCH (21:55)
[2019-06-15 05:56] LABS: Hemoglobin 16.5 gm/dl (12.5-18.0); Mean Cell Volume 93.6 fl (78-100); Mean Corpuscular Hemoglobin 32.9 pg (26-32); Mean Corpuscular Hgb Concent. 35.1 g/dl (32-36); Mean Platelet Volume 9.1 fl (6-9.5); Platelet Count 215 K/mm3 (150-450); Red Blood Count 5.02 M/mm3 (4.1-5.6); Red Cell Distribution Width 14.4 % (11.5-14.0)
[2019-06-15 06:06] LABS: ANION GAP 10.5 MEQ/L (5-15); BLOOD UREA NITROGEN 12 mg/dL (9-20); CHLORIDE 95 mmol/L (98-107); Carbon Dioxide 30 mmol/L (22-30); Creatinine 1 1.17 mg/dL (0.66-1.25); Glucose 100 mg/dL (74-106); Potassium 4.1 mmol/L (3.5-5.1); SODIUM 132 mmol/L (137-145)
[2019-06-15] MEDS: THERAGRAN MULTIVITAMIN PO SCH (09:38)
[2019-06-15] MEDS: hydroDIURIL 25 MG PO SCH (09:38)
[2019-06-15] MEDS: Cozaar 50 MG PO SCH (09:39)
--- NOTE | 2019-06-15 11:09 | PCM.NOTE ---
Date and Time: 06/15/19 1104 Subjective Assessment: Patient reports he is passing gas and feels hungry. load planner reports that surgeons want to continue gut rest and plan to see him tomorrow. His bladder was nicked during surgery and he is to keep the galeano in and then see urologist, Dr. Fotnenot, when discharged as an outpatient and is to have a cystogram with him. Patient reports no other health problems. He lives alone at home. - Review of Systems Constitutional: No Symptoms Eyes: No Symptoms Ears, Nose, & Throat: No Symptoms Respiratory: No Symptoms Cardiac: No Symptoms Abdominal/Gastrointestinal: Abdominal Pain Genitourinary Symptoms: No Symptoms Musculoskeletal: No Symptoms Objective Exam General Appearance: no apparent distress, alert, other (thinks his surgery was 2 days ago.) Neurologic Exam: alert, cooperative, normal mood/affect Skin Exam: normal color, warm, dry Wound Assessment: Skin/Wound Assessment Wound/Incision Assessment Start: 06/14/19 18: 58 Text: Status: Active Freq: Q6H Protocol: Document 06/15/19 08:00 AR (Rec: 06/15/19 08:30 AR [id number]) Wound/Incision Assessment Right Lower Anterior Abdomen Wound Assessment Shift Assessment Wound Type Incision Wound Stage Non Pressure Wound Dressing Status Dry & Intact Drainage Amount None Comment dressing CDI Left Anterior Abdomen Wound Assessment Shift Assessment Wound Type Incision Wound Stage Non Pressure Wound Dressing Status Dry & Intact Drainage Amount None Comment dressing CDI Anterior Medial Abdomen Wound Assessment Shift Assessment Wound Type Incision Wound Stage Non Pressure Wound Dressing Status Dry & Intact Drainage Amount None Comment dressing CDI. Wound Photo Photo Taken No Respiratory Exam: normal breath sounds, lungs clear, No crackles/rales, No rhonchi, No wheezing Cardiovascular Exam: regular rate/rhythm, normal heart sounds, No murmur, No friction rub, No gallop Gastrointestinal/Abdomen Exam: soft, normal bowel sounds, tenderness, other ( bandages in place), No distention, No mass OBJECTIVE DATA Vital Signs: Vital Signs - 24 hr Temp Pulse Resp BP Pulse Ox 06/15/19 08:00 99.2 F 99 H 20 99/61 93 L 06/15/19 06:45 93 L 06/15/19 04:00 97.9 F 109 H 18 106/63 96 06/15/19 00:00 98.2 F 110 H 19 112/61 94 L 06/14/19 20:47 98.6 F 93 H 18 172/102 97 06/14/19 20:17 99/56 06/14/19 18:53 97 06/14/19 17:36 89 180/95 06/14/19 16:41 97.8 F 80 20 180/82 98 06/14/19 15:45 97.8 F 79 20 181/83 99 06/14/19 15:04 97.7 F 76 20 170/79 98 06/14/19 14:50 97.8 F 79 22 182/95 96 Oxygen-Last 24 hours O2 Percentage 2 Liters = 28% O2 Percentage 2 Liters = 28% O2 Percentage 2 Liters = 28% O2 Percentage 2 Liters = 28% O2 Percentage 2 Liters = 28% Oxygen Flowrate (L/min)-RT 2 Pain Assessment - Last Documented Pain Intensity 0 Pain Scale Used 0-10 Pain Scale Intake and Output: Intake & Output 06/13/19 06/14/19 06/15/19 06/16/19 06:59 06:59 06:59 06:59 Intake Total 410 Output Total 1999 Balance -1590 Weight 83.915 kg 89 kg Lab Results: Lab Results-Last 24 Hours 06/14/19 06/14/19 06/15/19 Range/Units 11:17 15:14 05:43 WBC 13.0 H (4.0-10.5) K/mm3 RBC 5.02 (4.1-5.6) M/mm3 Hgb 16.5 (12.5-18.0) gm/dl Hct 47.0 (42-50) % MCV 93.6 (78-100) fl MCH 32.9 H (26-32) pg MCHC 35.1 (32-36) g/dl RDW 14.4 H (11.5-14.0) % Plt Count 215 (150-450) K/mm3 MPV 9.1 (6-9.5) fl Sodium (137-145) mmol/L Potassium 4.4 D (3.5-5.1) mmol/L Chloride (98-107) mmol/L Carbon Dioxide (22-30) mmol/L Anion Gap (5-15) MEQ/L BUN (9-20) mg/dL Creatinine (0.66-1.25) mg/dL Estimated GFR ML/MIN Glucose (74-106) mg/dL Calcium (8.4-10.2) mg/dL Urine Color STRAW (YELLOW) Urine Appearance SLIGHTLY CLOUDY (CLEAR) Urine pH 7.0 (5-6) Ur Specific Finley 1.017 (1.005-1.025) Urine Protein NEGATIVE (Negative) Urine Ketones NEGATIVE (NEGATIVE) Urine Blood SMALL (0-5) Zia/ul Urine Nitrite NEGATIVE (NEGATIVE) Urine Bilirubin NEGATIVE (NEGATIVE) Urine Urobilinogen NEGATIVE (0-1) mg/dL Ur Leukocyte Esterase NEGATIVE (NEGATIVE) Urine WBC (Auto) 0-2 (0-5) /HPF Urine RBC (Auto) 0-2 (0-2) /HPF U Epithel Cells (Auto) NONE (FEW) /HPF Urine Bacteria (Auto) NONE SEEN (NEGATIVE) /HPF Urine Glucose NEGATIVE (NEGATIVE) mg/dL 06/15/19 Range/Units 05:43 WBC (4.0-10.5) K/mm3 RBC (4.1-5.6) M/mm3 Hgb (12.5-18.0) gm/dl Hct (42-50) % MCV (78-100) fl MCH (26-32) pg MCHC (32-36) g/dl RDW (11.5-14.0) % Plt Count (150-450) K/mm3 MPV (6-9.5) fl Sodium 132 L (137-145) mmol/L Potassium 4.1 (3.5-5.1) mmol/L Chloride 95 L (98-107) mmol/L Carbon Dioxide 30 (22-30) mmol/L Anion Gap 10.5 (5-15) MEQ/L BUN 12 (9-20) mg/dL Creatinine 1.17 (0.66-1.25) mg/dL Estimated GFR > 60.0 ML/MIN Glucose 100 (74-106) mg/dL Calcium 9.0 (8.4-10.2) mg/dL Urine Color (YELLOW) Urine Appearance (CLEAR) Urine pH (5-6) Ur Specific Finley (1.005-1.025) Urine Protein (Negative) Urine Ketones (NEGATIVE) Urine Blood (0-5) Zia/ul Urine Nitrite (NEGATIVE) Urine Bilirubin (NEGATIVE) Urine Urobilinogen (0-1) mg/dL Ur Leukocyte Esterase (NEGATIVE) Urine WBC (Auto) (0-5) /HPF Urine RBC (Auto) (0-2) /HPF U Epithel Cells (Auto) (FEW) /HPF Urine Bacteria (Auto) (NEGATIVE) /HPF Urine Glucose (NEGATIVE) mg/dL Radiology Exams: Radiology Procedures Category Date Time Status ABDOMEN AND PELVIS W CONTRAST [CT] Stat Exams 06/14/19 07:02 Completed Assessment/Plan (1) Hypertension Current Visit: Yes Status: Acute Assessment & Plan: His systolic blood pressure was >180 yesterday so I ordered hydralazine IV 20 mg prn which he received x 1. His blood pressure dropped to about 100 systolic with this so I changed the prn hydralazine to 10 mg IV as needed. He received his regular blood pressure medications this AM and his blood pressure is better today. Code(s): I10 - ESSENTIAL (PRIMARY) HYPERTENSION (2) Incarcerated right inguinal hernia Current Visit: Yes Status: Acute Assessment & Plan: s/p surgery on 06/14/19. Management per general surgeon. Code(s): K40.30 - UNIL INGUINAL HERNIA, W OBST, W/O GANGR, NOT SPCF RECUR (3) DVT prophylaxis Current Visit: Yes Status: Acute Assessment & Plan: Continue SCD and frank hose. Code(s): Z29.9 - ENCOUNTER FOR PROPHYLACTIC MEASURES, UNSPECIFIED (4) Bladder injury Current Visit: Yes Status: Acute Assessment & Plan: galeano to stay in place and to see Urology as outpatient with galeano in place. Code(s): S37.20XA - UNSPECIFIED INJURY OF BLADDER, INITIAL ENCOUNTER
[2019-06-15] MEDS ORDERED: TYLENOL 325 MG PO PRN (11:12)
[2019-06-15] MEDS: Sodium Chloride 0.9% 10 ML FLUSH Syringe IV SCH ×3 (16:46→21:22)
[2019-06-15] MEDS: Levofloxacin 500MG/100ML D5W 500 MG/100 ML BAG IV SCH (16:46)
[2019-06-16] MEDS: Sodium Chloride 0.9% 10 ML FLUSH Syringe IV SCH ×2 (05:29→14:00)
[2019-06-16 06:15] LABS: Hematocrit 46.4 % (42-50); Hemoglobin 16.2 gm/dl (12.5-18.0); Mean Cell Volume 93.7 fl (78-100); Mean Corpuscular Hemoglobin 32.7 pg (26-32); Mean Corpuscular Hgb Concent. 34.9 g/dl (32-36); Mean Platelet Volume 9.3 fl (6-9.5); Platelet Count 207 K/mm3 (150-450); Red Blood Count 4.95 M/mm3 (4.1-5.6); White Blood Count 12.4 K/mm3 (4.0-10.5)
[2019-06-16 06:27] LABS: ANION GAP 12.7 MEQ/L (5-15); BLOOD UREA NITROGEN 17 mg/dL (9-20); CHLORIDE 92 mmol/L (98-107); Calcium 9.2 mg/dL (8.4-10.2); Carbon Dioxide 28 mmol/L (22-30); Creatinine 1 1.14 mg/dL (0.66-1.25); Glucose 82 mg/dL (74-106); SODIUM 129 mmol/L (137-145)
[2019-06-16] MEDS: hydroDIURIL 25 MG PO SCH (09:14)
[2019-06-16] MEDS: Cozaar 50 MG PO SCH (09:15)
[2019-06-16] MEDS: THERAGRAN MULTIVITAMIN PO SCH (09:15)
--- NOTE | 2019-06-16 12:16 | PCM.NOTE ---
Date and Time: 06/16/19 1214 Subjective Assessment: Patient reports good stool today; surgeons advanced his diet. He has been up to a chair. He understands his galeano will stay in until he sees urologist. He denies any concerns. - Review of Systems Constitutional: No Symptoms Respiratory: No Symptoms Cardiac: No Symptoms Abdominal/Gastrointestinal: Abdominal Pain, Other (from where surgery was done but tolerable.) Musculoskeletal: No Symptoms Objective Exam General Appearance: no apparent distress Neurologic Exam: alert, cooperative, normal mood/affect Skin Exam: normal color, warm, dry Wound Assessment: Skin/Wound Assessment Wound/Incision Assessment Start: 06/14/19 18: 58 Text: Status: Active Freq: Q6H Protocol: Document 06/16/19 08:00 BA (Rec: 06/16/19 09:44 BA [id number]) Wound/Incision Assessment Right Lower Anterior Abdomen Wound Assessment Shift Assessment Wound Type Incision Wound Stage Non Pressure Wound Dressing Status Dry & Intact Drainage Amount None Primary Dressing pressure dressing Comment dressing CDI Anterior Medial Abdomen Wound Assessment Shift Assessment Wound Type Incision Wound Stage Non Pressure Wound Dressing Status Dry & Intact Drainage Amount None Primary Dressing Bandaid Comment bandaids in place x 2 CDI trocar incisions Wound Photo Photo Taken No Respiratory Exam: normal breath sounds, lungs clear, No crackles/rales, No rhonchi, No wheezing Cardiovascular Exam: regular rate/rhythm, No murmur, No friction rub, No gallop OBJECTIVE DATA Vital Signs: Vital Signs - 24 hr Temp Pulse Resp BP Pulse Ox 06/16/19 11:39 98.3 F 97 H 18 139/90 96 06/16/19 07:05 97.7 F 85 18 169/93 93 L 06/16/19 03:54 98.2 F 85 18 159/80 95 06/15/19 20:00 98.4 F 87 17 119/78 92 L 06/15/19 18:31 95 06/15/19 16:00 98.5 F 86 20 136/84 90 L Pain Assessment - Last Documented Pain Intensity 0 Pain Scale Used 0-10 Pain Scale Intake and Output: Intake & Output 06/14/19 06/15/19 06/16/19 06/17/19 06:59 06:59 06:59 06:59 Intake Total 410 305 0 Output Total 2000 700 Balance -1590 -395 0 Weight 83.915 kg 89 kg 89.1 kg Lab Results: Lab Results-Last 24 Hours 06/16/19 06/16/19 06/16/19 Range/Units 05:20 05:20 10:45 WBC 12.4 H (4.0-10.5) K/mm3 RBC 4.95 (4.1-5.6) M/mm3 Hgb 16.2 (12.5-18.0) gm/dl Hct 46.4 (42-50) % MCV 93.7 (78-100) fl MCH 32.7 H (26-32) pg MCHC 34.9 (32-36) g/dl RDW 14.0 (11.5-14.0) % Plt Count 207 (150-450) K/mm3 MPV 9.3 (6-9.5) fl Sodium 129 L (137-145) mmol/L Potassium 4.0 (3.5-5.1) mmol/L Chloride 92 L (98-107) mmol/L Carbon Dioxide 28 (22-30) mmol/L Anion Gap 12.7 (5-15) MEQ/L BUN 17 (9-20) mg/dL Creatinine 1.14 (0.66-1.25) mg/dL Estimated GFR > 60.0 ML/MIN Glucose 82 (74-106) mg/dL Calcium 9.2 (8.4-10.2) mg/dL Urine Sodium 134 H (30-90) mmol/L Assessment/Plan (1) Hypertension Current Visit: Yes Status: Acute Assessment & Plan: Stopping HCTZ due to hyponatremia. Continuing other blood pressure medication. Will monitor. Code(s): I10 - ESSENTIAL (PRIMARY) HYPERTENSION (2) Incarcerated right inguinal hernia Current Visit: Yes Status: Acute Assessment & Plan: Management per general surgeon, s/p surgery Code(s): K40.30 - UNIL INGUINAL HERNIA, W OBST, W/O GANGR, NOT SPCF RECUR (3) DVT prophylaxis Current Visit: Yes Status: Acute Code(s): Z29.9 - ENCOUNTER FOR PROPHYLACTIC MEASURES, UNSPECIFIED (4) Bladder injury Current Visit: Yes Status: Acute Assessment & Plan: Plan same as yesterday. Code(s): S37.20XA - UNSPECIFIED INJURY OF BLADDER, INITIAL ENCOUNTER (5) Hyponatremia Current Visit: Yes Status: Acute Assessment & Plan: Will check urine Na and urine osmolality. Most likely due to HCTZ so would be better to use other medication for his HTN. Code(s): E87.1 - HYPO-OSMOLALITY AND HYPONATREMIA
[2019-06-16] MEDS: Levofloxacin 500MG/100ML D5W 500 MG/100 ML BAG IV SCH (16:33)
[2019-06-16 19:58] VITALS: O2SAT 94
[2019-06-16] MEDS ORDERED: Tums EX 750 MG PO PRN (22:50)
[2019-06-17 04:52] LABS: Hematocrit 44.4 % (42-50); Hemoglobin 15.7 gm/dl (12.5-18.0); Mean Cell Volume 91.7 fl (78-100); Mean Corpuscular Hemoglobin 32.4 pg (26-32); Mean Corpuscular Hgb Concent. 35.4 g/dl (32-36); Platelet Count 197 K/mm3 (150-450); Red Blood Count 4.84 M/mm3 (4.1-5.6); Red Cell Distribution Width 13.4 % (11.5-14.0); White Blood Count 11.5 K/mm3 (4.0-10.5)
[2019-06-17 05:14] LABS: BLOOD UREA NITROGEN 19 mg/dL (9-20); CHLORIDE 89 mmol/L (98-107); Calcium 9.3 mg/dL (8.4-10.2); Carbon Dioxide 27 mmol/L (22-30); Creatinine 1 1.09 mg/dL (0.66-1.25); Glucose 95 mg/dL (74-106); Potassium 3.7 mmol/L (3.5-5.1); SODIUM 126 mmol/L (137-145)
[2019-06-17] MEDS ORDERED: Tums EX 750 MG PO PRN (06:57)
[2019-06-17 07:25] VITALS: PULSE 84
[2019-06-17] MEDS: THERAGRAN MULTIVITAMIN PO SCH (09:25)
[2019-06-17] MEDS: Cozaar 50 MG PO SCH (09:25)
[2019-06-17] MEDS ORDERED: Protonix 40MG Tablet PO SCH (10:00)
[2019-06-17 13:03] VITALS: BP 148/68
== END 2019-06-17 13:14 | disposition home or self-care (01) | DRG 394 ==
LOC: ED 02:47 → MED SURG 06:50 → OBSVTOIN 13:25
PROVIDERS: ADMIT Family Medicine; ATTEND Family Medicine
DX: K40.31 Unilateral inguinal hernia, with obstruction, without gangrene, recurrent (principal); S37.23XA Laceration of bladder, initial encounter; E87.1 Hypo-osmolality and hyponatremia; I10 Essential (primary) hypertension; Z79.899 Other long term (current) drug therapy
CPT/HCPCS: 36000; 36415; 74177; 80048; 80053; 81001; 83935; 84132; 84300; 85025; 85027; 85610; 87086; 93005; 94760; 96360; 96365; 96374; 96375; 99100; 99140; 99284; 99285; J0330; J0360; J1956; J2060; J2250; J2270; J2370; J2405; J2704; J3010; J3480; A9270-GY